=== PATIENT | male | born 1985 | race Hispanic/Latino ===

== ENCOUNTER → 2018-01-26 | Outpatient (CLI) | payer SELFPAY ==
[2018-01-26 18:01] LABS: ANION GAP 9 MEQ/L (8-16); BLOOD UREA NITROGEN 14 MG/DL (7-18); CALCIUM LEVEL 8.8 MG/DL (8.5-10.1); CARBON DIOXIDE LEVEL 27 MEQ/L (21-32); CHLORIDE LEVEL 103 MEQ/L (98-107); CREATININE FOR GFR 0.76 MG/DL (0.70-1.30); GLOMERULAR FILTRATION RATE > 60.0 (>60); GLUCOSE, FASTING 84 MG/DL (70-100); POTASSIUM SERUM 4.2 MEQ/L (3.5-5.1); SODIUM LEVEL 139 MEQ/L (136-145)
[2018-01-26 18:20] LABS: HEMATOCRIT 46.7 % (42.0-52.0); HEMOGLOBIN 16.2 g/dl (13.5-17.5); MEAN CORPUSCULAR HEMOGLOBIN 30.6 pg (27.0-33.0); MEAN CORPUSCULAR HGB CONC 34.7 g/dl (32.0-36.5); MEAN CORPUSCULAR VOLUME 88.1 fl (80.0-96.0); PLATELET COUNT, AUTOMATED 236 10^3/uL (150-450); RED CELL DISTRIBUTION WIDTH 12.1 % (11.5-14.5); WHITE BLOOD COUNT 9.8 10^3/uL (4.0-10.0)
[2018-01-26 18:28] LABS: APPEARANCE, URINE CLEAR (CLEAR); BACTERIA, URINE AUTO NEGATIVE (NEGATIVE); BILIRUBIN, URINE AUTO NEGATIVE (NEGATIVE); BLOOD, URINE BLOOD NEGATIVE (NEGATIVE); COLOR, URINE YELLOW (YELLOW); GLUCOSE, URINE (UA) AUTO NEGATIVE (NEGATIVE); KETONE, URINE AUTO TRACE mg/dL (NEGATIVE); LEUKOCYTE ESTERASE, URINE AUTO TRACE (NEGATIVE); MUCUS, URINE SMALL (NEGATIVE); NITRITE, URINE AUTO NEGATIVE (NEGATIVE); PROTEIN, URINE AUTO NEGATIVE (NEGATIVE); RBC, URINE AUTO 3 /HPF (0-3); SPECIFIC GRAVITY URINE AUTO 1.014 (1.002-1.035); SQUAMOUS EPITHELIAL CELL UR AU 0 /HPF (0-6); UROBILINOGEN, URINE AUTO 0.2 mg/dL (0.0-2.0); WBC, URINE AUTO 3 /HPF (0-3)
[2018-01-26 18:51] LABS: INR 0.99; PARTIAL THROMBOPLASTIN TIME 28.6 SECONDS (26.8-37.9); PROTHROMBIN TIME 13.2 SECONDS (12.4-14.5)
== END ==
LOC: M LAB 16:26
DX: Z01.818 Encounter for other preprocedural examination (principal); N20.0 Calculus of kidney

== ENCOUNTER 2018-01-29 07:39 | Day surgery (SDC) | payer SELFPAY ==
[2018-01-29] MEDS ORDERED: LR 1,000 ML IV ×2 (08:00→12:00)
[2018-01-29] MEDS ORDERED: ONDANSETRON 4MG/2ML VIAL (J2405) As Ordered (09:08)
[2018-01-29] MEDS ORDERED: LIDOCAINE 2% INJ 100 MG/5 ML SDV (FOR ANES.) As Ordered (09:08)
[2018-01-29] MEDS ORDERED: PROPOFOL 200 MG/20 ML VIAL As Ordered (09:08)
[2018-01-29] MEDS ORDERED: dexameTHASONE 4 MG/ML 1ML VIAL (J1100) As Ordered (09:08)
[2018-01-29] MEDS ORDERED: KETOROLAC 60 MG/2 ML VIAL (J1885) As Ordered (09:08)
[2018-01-29] MEDS ORDERED: MIDAZOLAM INJ 5 MG/ML VIAL (J2250) As Ordered (09:09)
[2018-01-29] MEDS ORDERED: fentaNYL 100 MCG/2 ML INJECTION (J3010) As Ordered ×2 (09:09→11:46)
[2018-01-29] MEDS ORDERED: PHENYLephrine HCL 500 MCG/5 ML (100MCG/ML) SYRINGE (J2370) As Ordered (10:25)
[2018-01-29] MEDS: CONRAY-60 60% 50ML VIAL (Q9961) As Ordered (11:12)
[2018-01-29] MEDS: fentaNYL 100 MCG/2 ML INJECTION (J3010) IV ×4 (11:45→12:00)
[2018-01-29] MEDS ORDERED: ONDANSETRON 4MG/2ML VIAL (J2405) IV (12:00)
[2018-01-29] MEDS ORDERED: HYDROMORPHONE HCL 0.5 MG/ 0.5 ML SYRINGE (J1170 PER 1) IV (12:00)
[2018-01-29] MEDS: PERCOCET 5MG/325MG TAB PO (12:07)
[2018-01-29] MEDS ORDERED: PERCOCET 5MG/325MG TAB PO ×2 (12:30)
== END 2018-01-29 12:55 | disposition home or self-care (01) ==
LOC: M SDC 12:55
DX: N20.1 Calculus of ureter (principal)
CPT/HCPCS: 52356

== ENCOUNTER → 2018-02-24 | Outpatient (CLI) | payer SELFPAY | LOC: M SMT 09:30 | DX: N20.0 Calculus of kidney (principal) | CPT/HCPCS: 74018 ==

== ENCOUNTER → 2018-12-16 | Outpatient (REF) | payer OTHER ==
[~2018-12-16] MED LIST: OXYC1TAB23 PO
== END ==
LOC: M SFHCCAPE 16:59
PROVIDERS: ATTEND Physician Assistant
DX: N50.89 Other specified disorders of the male genital organs (principal)

== ENCOUNTER → 2018-12-17 | Outpatient (REF) | payer OTHER | LOC: M SFHCCAPE 09:25 | PROVIDERS: ATTEND Physician Assistant | DX: N50.89 Other specified disorders of the male genital organs (principal) ==

== ENCOUNTER 2024-03-26 21:30 | Emergency (ER) | payer SELFPAY ==
[~2024-03-26] VITALS: Ht 152.4 cm; Wt 66.0 kg
[2024-03-26 21:31] VITALS: TEMP 98.1
[2024-03-27] MEDS ORDERED: OXYC1TAB23 PO (02:59)
[2024-03-27] MEDS: PERCOCET 5MG/325MG TAB PO ONE (03:05)
[2024-03-27 03:22] VITALS: BP 138/84; O2SAT 98
== END 2024-03-27 03:23 | disposition home or self-care (01) ==
LOC: M ED 21:30
DX: S42.021A Displaced fracture of shaft of right clavicle, initial encounter for closed fracture (principal); W19.XXXA Unspecified fall, initial encounter; Y92.9 Unspecified place or not applicable; Y93.66 Activity, soccer; Y99.9 Unspecified external cause status

== ENCOUNTER → 2024-04-12 | Outpatient (CLI) | payer SELFPAY | LOC: M SOG 07:53 | PROVIDERS: ATTEND Orthopaedic Surgery | DX: S42.021D Displaced fracture of shaft of right clavicle, subsequent encounter for fracture with routine healing (principal) ==

== ENCOUNTER → 2024-07-12 | Outpatient (CLI) | payer SELFPAY | LOC: M SOG 07:56 | PROVIDERS: ATTEND Orthopaedic Surgery | DX: S42.021D Displaced fracture of shaft of right clavicle, subsequent encounter for fracture with routine healing (principal); Z53.8 Procedure and treatment not carried out for other reasons ==